=== PATIENT | female | born 1995 | race Caucasian/White ===

== ENCOUNTER 2025-04-01 12:11 | Inpatient (IN) | payer BC ==
[2025-04-01] MEDS ORDERED: Ondansetron 4 MG/2 ML SDV IVPUSH PRN (12:21)
[2025-04-01] MEDS ORDERED: Sodium Chloride 0.9% 10 ML Syringe FLUSH PRN (12:21)
[2025-04-01] MEDS ORDERED: Oxytocin/0.9 % Sodium Chloride 30 UNIT/500 ML BAG IV SCH (12:30)
[2025-04-01 12:44] LABS: BASOPHILS ABSOLUTE AUTO 0.1 K/mm3 (0.0-0.2); BASOPHILS PERCENT AUTO 0.4 % (0.0-1.0); EOSINOPHILS ABSOLUTE AUTO 0.1 K/mm3 (0.0-0.4); EOSINOPHILS PERCENT AUTO 0.9 % (0.0-6.0); IMMATURE GRAN ABSOLUTE AUTO 0.28 K/mm3 (0.00-0.05); IMMATURE GRAN PERCENT AUTO 2.0 % (0.0-0.4); LYMPHOCYTES ABSOLUTE AUTO 2.3 K/mm3 (1.0-4.8); LYMPHOCYTES PERCENT AUTO 16.5 % (24.0-44.0); MEAN PLATELET VOLUME 9.9 fl (9.4-12.3); MONOCYTES ABSOLUTE AUTO 1.2 K/mm3 (0.0-0.8); MONOCYTES PERCENT AUTO 8.3 % (0.0-8.0); NEUTROPHILS ABSOLUTE AUTO 10.1 K/mm3 (1.8-7.7); NEUTROPHILS PERCENT AUTO 71.9 % (41.0-71.0); NRBC ABSOLUTE 0.00 (0.00-0.02); NRBC PERCENT 0.0 % (0.0-0.2); PLATELET COUNT,PLT 270 K/mm3 (150-400); RED BLOOD CELL COUNT 3.54 M/mm3 (4.10-5.30); WHITE BLOOD CELL COUNT,WBC 14.04 K/mm3 (3.9-11.3)
[2025-04-01] MEDS ORDERED: Penicillin G Potassium 5 MILLUNITS in Sodium Chloride 0.9% 100 ML IV SCH (13:00)
[2025-04-01 13:09] LABS: A/G RATIO 0.7 (1-2); ALANINE AMINOTRANSFERASE,ALT 15.0 U/L (14-59); ASPARTATE AMNIOTRANSFERASE,AST 17.0 U/L (15-37); BILIRUBIN TOTAL 0.2 mg/dL (0.2-1.0); BLOOD UREA NITROGEN,BUN 7.0 mg/dL (7-18); CARBON DIOXIDE,CO2 23.0 mEq/L (21-32); CHLORIDE,CL 108.0 mEq/L (98-107); CREATININE 0.8 mg/dL (0.55-1.02); EST CRCL DRUG DOSING (CG) 102.72 mL/min; ESTIMATED GFR 104.0 mL/min (>60); GLUCOSE RANDOM 76.0 mg/dL (70-99); POTASSIUM,K 3.7 mEq/L (3.5-5.1); PROTEIN TOTAL,TP 6.2 g/dl (6.4-8.2); SODIUM,NA 139.0 mEq/L (136-145)
[2025-04-01] MEDS: Misoprostol 25 MCG (1/4 of 100 MCG) Tab VAG ONE (13:17)
[2025-04-01 13:57] LABS: CREATININE,URINE RAND 16.2 mg/dL (30.0-125.0); PROTEIN,URINE RANDOM < 6.0 mg/dL (0.0-11.8)
[2025-04-01] MEDS ORDERED: Penicillin G Potassium 2.5 MILLUNITS in Sodium Chloride 0.9% 100 ML IV SCH ×2 (17:00→21:30)
[2025-04-01] MEDS: Lactated Ringers 1,000 ML IV SCH (17:30)
[2025-04-01] MEDS: Penicillin G Potassium 5 MILLUNITS in Sodium Chloride 0.9% 100 ML IV ONE (17:50)
[2025-04-01] MEDS: Oxytocin/0.9 % Sodium Chloride 30 UNIT/500 ML BAG IV SCH (17:57)
[2025-04-01] MEDS: Penicillin G Potassium 2.5 MILLUNITS in Sodium Chloride 0.9% 100 ML IV SCH (21:30)
[2025-04-01] MEDS: Nalbuphine 10 MG/1 ML Vial IVPUSH PRN (21:35)
[2025-04-02] MEDS: Sodium Chloride 0.9% 10 ML Syringe FLUSH SCH (00:07)
[2025-04-02] MEDS: ePHEDrine 50 MG/ML SDV IVPUSH ONE (06:30)
[2025-04-02] MEDS: Bupivacaine/fentaNYL/NS 100 ML Bag EPIDUR SCH (11:46)
[2025-04-02] MEDS: Penicillin G Potassium 2.5 MILLUNITS in Sodium Chloride 0.9% 100 ML IV SCH (12:52)
[2025-04-02] MEDS: Witch Hazel Medicated Pads 40/Jar TOP PRN (19:19)
[2025-04-02] MEDS: Benzocaine/Menthol 20%-0.5% Spray 78 GM Cannister TOP PRN (19:20)
== END 2025-04-03 18:45 | disposition home or self-care (01) | DRG 560 ==
LOC: JD.OB 12:11 → UNDOADMOB 12:11 → JD.OB 12:21 → OBSVTOIN 04-02 17:38 → JD.OB 04-02 17:39
PROVIDERS: ADMIT Family Medicine; ATTEND Family Medicine
PROC: 10E0XZZ Delivery of Products of Conception, External Approach (ICD-10-PCS; principal; 2025-04-02)
PROC: 3E0DXGC Introduction of Other Therapeutic Substance into Mouth and Pharynx, External Approach (ICD-10-PCS; 2025-04-02)
PROC: 3E033VJ Introduction of Other Hormone into Peripheral Vein, Percutaneous Approach (ICD-10-PCS; 2025-04-02)
PROC: 0U7C7DJ Dilation of Cervix with Intraluminal Device, Temporary, Via Natural or Artificial Opening (ICD-10-PCS; 2025-04-02)
PROC: 10907ZC Drainage of Amniotic Fluid, Therapeutic from Products of Conception, Via Natural or Artificial Opening (ICD-10-PCS; 2025-04-02)
PROC: 3E0S3BZ Introduction of Anesthetic Agent into Epidural Space, Percutaneous Approach (ICD-10-PCS; 2025-04-02)
PROC: 3E03329 Introduction of Other Anti-infective into Peripheral Vein, Percutaneous Approach (ICD-10-PCS; 2025-04-02)
DX: O99.824 Streptococcus B carrier state complicating childbirth (principal); Z37.0 Single live birth; Z3A.39 39 weeks gestation of pregnancy; O13.4 Gestational [pregnancy-induced] hypertension without significant proteinuria, complicating childbirth; B95.1 Streptococcus, group B, as the cause of diseases classified elsewhere; O69.81X0 Labor and delivery complicated by cord around neck, without compression, not applicable or unspecified; O70.9 Perineal laceration during delivery, unspecified
CPT/HCPCS: 36415; 51702; 59025; 59409; 80053; 82570; 84156; 85025; 86592; A9270-GY; C1726; J2300; J2540; J3490; J7120; J7999